=== PATIENT | female | born 1970 | race Caucasian/White ===

== ENCOUNTER 2017-07-20 17:06 | Emergency (ER) | payer OTHER ==
[2017-07-20 17:30] VITALS: BP 123/82
--- NOTE | 2017-07-20 17:36 | ED Physician Documentation ---
Upper Respiratory Symptoms - HISTORIAN Historian: patient - HPI Stated Complaint: cough, nipple pain Chief Complaint: Fever Onset: days ago (4) Duration: constant Context: denies: recent foreign travel, multiple patients Severity: mild Associated Symptoms: denies: fever, chills, sweating, earache, runny nose, sinus pain Worsened by Deep Breath: No Further Comments: yes (she reports a cough that started . cough is productive. No fever. She also reports bilateral nipple pain. She denies any injury. She does not do self breast exams) - ROS CONST/EYES: denies: weakness, eye redness, eye itching CVS/RESP: denies: shortness of breath LYMPH: denies: rash GI/: denies: abdominal pain, problems urinating NEURO/PSYCH: denies: dizziness MS/SKIN: denies: joint pain, muscle aches - PAST HX Lung Disease: none PE Risk Factors: none Surgeries/Procedures: BLT Immunizations: UTD Allergies/Adverse Reactions: Allergies Allergy/AdvReac Type Severity Reaction Status Date / Time No Known Allergies Allergy Verified 07/20/17 17:30 - SOCIAL HX Smoking History: non-smoker Alcohol Use: none Drug Use: none - FAMILY HX Family History: none - VITAL SIGNS Vital Signs: Vital Signs Temp Pulse Resp BP Pulse Ox 98.3 F 84 18 123/82 96 07/20/17 17:25 07/20/17 17:25 07/20/17 17:25 07/20/17 17:25 07/20/17 17:25 - REVIEWED ASSESSMENTS Nursing Assessment Reviewed: Yes Vitals Reviewed: Yes Upper Respiratory Symptoms - EXAM General Appearance: no acute distress Neck: normal inspection Respiratory: no resp. distress, breath sounds nml, no pain on inspiration Abdomen: non-tender, no organomegaly, nml bowel sounds, no distention CVS: reg rate & rhythm, heart sounds normal, equal pulses, no murmur Skin: color nml, no rash, other (right nipple with small superfical crack (dry skin appearing) left nipple normal ) Extremities: non-tender Neuro/Psych: oriented x3, neuro intact, mood/affect nml Discharge Clincal Impression: Cough Referrals: Savannah Jeffers MD [Primary Care Provider] - 2 Days Comments: Increase fluids Tessalon Pearls as needed for cough (as prescribed) Warm tea Lotion to nipples Follow up with PCP for well woman exam Return to ER for any changes in symptoms or concerns Condition: Stable Disposition: 01 HOME, SELF-CARE Decision to Admit: NO Date of Decison to Admit: 07/20/17 Decision Time: 17:38
== END 2017-07-20 17:47 | disposition home or self-care (01) ==
LOC: ED 17:06
DX: R05 Cough (principal); N64.0 Fissure and fistula of nipple
CPT/HCPCS: 87400; 99282

== ENCOUNTER 2018-01-21 07:34 | Outpatient (CLI) | payer OTHER ==
[2018-01-21 08:21] LABS: eGFR (African) > 60; eGFR (Non-African) > 60
== END 2018-01-21 07:36 ==
LOC: LAB 07:34
PROVIDERS: ATTEND Physician Assistant
DX: Z00.00 Encounter for general adult medical examination without abnormal findings (principal); Z13.6 Encounter for screening for cardiovascular disorders
CPT/HCPCS: 36415; 80053; 80061